=== PATIENT | male | born 1985 | race Caucasian/White ===

== ENCOUNTER 2016-09-22 22:23 | Emergency (ER) | payer MEDICAID, OTHER ==
[~2016-09-22] VITALS: Ht 190.5 cm; Wt 72.7 kg
[2016-09-22 22:33] VITALS: BP 127/76; PULSE 77; RESP 16; O2SAT 100
--- NOTE | 2016-09-22 22:47 | ED.REPORT ---
HPI-Extremity Problem Lower Date of Service Sep 22, 2016 ED Provider: Dr. Kwame Madsen M.D. A healthy 31 year old male presents to the ED with bilateral leg swelling (L>R) onset two days ago. The patient also reports multiple painful, itchy wounds to his legs and left hand. He denies fever, productive cough, or other symptoms. The patient admits to using methamphetamines and heroin recently. Nursing Notes Stated Complaint: LEG SWELLING, SOARS ON LEG Chief Complaint: Skin Rash/Abscess Nursing Notes Reviewed: Yes Allergies: Coded Allergies: hydrocodone (Verified Allergy, Unknown, HIVES, 09/22/16) Scheduled Cephalexin (Keflex) 500 Mg Capsule 500 MG PO QID Sulfamethoxazole/Trimeth 800-160 mg (Bactrim DS) 1 Each Tablet 1 TABLET PO BID Scheduled PRN Ibuprofen (Ibuprofen) 600 Mg Tablet 600 MG PO QID PRN PRN For Pain diphenhydrAMINE HCl (Benadryl) 25 Mg Capsule 25 MG PO HS PRN PRN General Time Seen by MD: 22:46 Chief Complaint Other (Bilateral Leg Swelling) Hx Obtained From: Patient Arrived By: Walk-in Onset Occurred: 2 days ago Symptom Duration: Since onset Location: : Leg left: Leg right Quality: Painful Severity: Current: Moderate Severity: Maximum: Moderate Associated with: Denies: Fever Pertinent Negative: Relieved by nothing Immunizations: Unknown Recent Healthcare: No recent doctor visit Past Medical History Past Medical History None reported Past Surgical History None reported Smoking History Unknown if Ever Smoker Social History Drug Use: Meth, THC, Other (Heroin ) Other Social History: Good social support Ambulatory Status Independent Review of Systems Review of Systems Note: + Multiple wounds to bilateral legs and left hand - Productive cough Constitutional: Denies: Fever Musculoskeletal: Reports: Extremity pain (Bilateral lower extremities, left hand), Extremity swelling (Bilateral legs (L>R)) Skin: Reports Itching (Bilateral lower extremities, left hand) Complete sys rev & neg: except as marked. Respiratory: Denies: Non-productive cough, Shortness of breath GI: Denies: Diarrhea, Vomiting Physical Exam Initial Vital Signs Vital Signs (First) Date Time Temp Pulse Resp B/P Pulse Ox O2 Delivery O2 Flow Rate FiO2 09/22/16 22:33 36.6 77 16 127/76 100 Room Air Initial VS: Reviewed Head / Eyes: Atraumatic, Normocephalic ENT: Conjunctiva normal, No scleral icterus Neck: Supple, Full range of motion Skin: Warm, Dry, No cyanosis Neurologic: Alert, Oriented, Nonfocal Psychiatric: Mood/affect normal, Behavior normal, Normal thought content Lower Extremity / Pelvis / MS: No deformity, Neurologic intact Right Leg / Calf: Positive: Tenderness present... Left Leg / Calf: Positive: Tenderness present... Multiple draining ulcers to bilateral legs Bilateral 2+ lower extremity edema Proximal cords to bilateral lower extremities General/Constitutional: Awake, Alert, No acute distress Re-Eval/Medical Decision Med Decision/Clinical Course 31-year-old with chronic substance abuse including methamphetamine and heroin, presents with bilaterally swollen legs, multiple scabs and oozing ulcers, with some mild focal cellulitis. Culture obtained for MRSA. Begun with bacitracin dressings, Keflex and Bactrim. Crutches for nonweightbearing status. Requested narcotic pain relievers and we had a long discussion about the non-utility of opiates in the setting. He is satisfied with that and will follow-up for rehabilitation as already planned. Suggested that he not use methamphetamine most particularly, as it is causing scratching behavior and exacerbating his skin issues. Re-Evaluation/Progress : Time of Eval: 23:02 Patient Status: Condition improved Re-Evaluation/Progress Note: Patient's wounds redressed with gauze. Discussed with patient physical exam findings, diagnosis, and plan for discharge. Follow-up and return to the ER instructions given. Patient agrees with plan for care and all questions were addressed. Counseled Regarding: Diagnosis, Need for follow-up, When/why to return to ED Discharge & Departure Shift Change Sign-Out Response to Therapy: Improved Impression: Primary Impression: Cellulitis Site of cellulitis: extremity Site of cellulitis of extremity: lower extremity Laterality: unspecified laterality Qualified Code: L03.119 - Cellulitis of unspecified part of limb Additional Impression: Peripheral edema Disposition: Home Discharge Condition All VS Reviewed: Yes Condition: Improved Patient Instructions: Cellulitis (ED) Additional Instructions: Stop using methamphetamine. Keep all of these various wounds coated with bacitracin ointment and covered to allow drainage. Wash them with mild soap and water and then re-dress. You may shower and clean them and that way. Re-dress after each shower. Begin Keflex four times daily. Begin Bactrim twice daily. Ibuprofen four times daily if needed for pain. Claritin daily or Benadryl three times daily for itch. Benadryl is especially helpful at night for both sleep and itch. Elevate your legs whenever possible to reduce swelling. Wear compression stockings such as soccer hose or above the knee socks. These are available relatively cheaply at [employer]. They can also be bought in the sporting [employer] department at [employer] or [facility]. Referrals: [facility] Scribe Attestation Portions of this note were transcribed by Samantha Guerrero. I, Dr. Madsen, personally performed the history, physical exam, and medical decision-making; I reviewed and confirmed the accuracy of the information in the transcribed note. Signed by: Prachi Henderson, 09/23/2016, 01:35 copies to: [facility] Kwame Madsen MD Sep 22, 2016 22:46 SAMANTHA GUERRERO Sep 22, 2016 22:55
[2016-09-22] MEDS ORDERED: Trimethoprim-Sulfa 160 mg-800 mg Tablet PO ONE (23:10)
[2016-09-22] MEDS ORDERED: CEPH-512 PO (23:14)
[2016-09-22] MEDS ORDERED: DIPH25CA6 PO (23:14)
[2016-09-22] MEDS ORDERED: IBUP-1827 PO (23:14)
[2016-09-22] MEDS ORDERED: SULF1TAB7 PO (23:14)
[2016-09-22 23:57] VITALS: BP 127/76; PULSE 77; RESP 16; O2SAT 100
== END 2016-09-22 23:58 | disposition home or self-care (01) ==
LOC: SED 22:23
DX: L03.119 Cellulitis of unspecified part of limb (principal); L89.891 Pressure ulcer of other site, stage 1; R60.0 Localized edema; F11.20 Opioid dependence, uncomplicated; F15.20 Other stimulant dependence, uncomplicated; Z88.5 Allergy status to narcotic agent